=== PATIENT | male | born 1940 | race Caucasian/White ===

== ENCOUNTER → 2019-03-30 | Outpatient (CLI) | payer MEDICARE ==
[~2019-03-30] MED LIST: AMLODIPINE BESY10 MG PO; ASPIR 8181 MG PO; ATORVASTATIN CA10 MG PO; VITAMIN B12 PO; VITAMIN D32000 UNIT PO
--- NOTE | 2019-03-30 11:27 | Diagnostic Imaging Report ---
EXAM: Renal Ultrasound INDICATION: ^[id number] ^1028 ^CHRONIC KIDNEY DISEASE COMPARISON: None TECHNIQUE: Transverse and longitudinal images of the kidneys and bladder were obtained. FINDINGS: Right Kidney: Length: 10.1 cm Appearance: Normal echogenicity. Collecting system: No hydronephrosis Stones: None Cyst/Mass: Mid pole cyst measuring 2.4 x 2.4 x 2.1 cm and lateral midpole cyst measuring 2.0 x 1.6 x 2.0 cm. Left Kidney: Length: 9.5 cm Appearance: Slightly increased echogenicity. Collecting system: No hydronephrosis Stones: None Cyst/Mass: Multiple simple cysts, the largest of which are lateral/inferior (3.3 x 3.1 x 2.9 cm) and medial/superior (2.6 x 2.2 x 2.2 cm). Bladder: There is an echogenic mass at the posterior and inferior aspect of the bladder measuring 2.9 x 1.9 x 3.5 cm which is non-mobile and demonstrates posterior acoustic shadowing. IMPRESSION: Echogenic non-mobile 2.9 x 1.9 x 3.5cm mass in the bladder with posterior acoustic shadowing may represent a stone versus less likely calcified mass. Bilateral simple renal cysts. No renal calculi or hydronephrosis. Signed by: Fermin Orantes MD on 03/30/2019 11:24 AM
== END ==
LOC: US 09:33
PROVIDERS: ATTEND Urology
DX: N18.9 Chronic kidney disease, unspecified (principal)
CPT/HCPCS: 76770

== ENCOUNTER → 2019-04-17 | Day surgery (SDC) | payer MEDICARE ==
--- NOTE | 2019-04-14 17:00 | Diagnostic Imaging Report ---
EXAMINATION: CHEST 2 VIEWS INDICATION: Pre-operative COMPARISON: None FINDINGS: TUBES and LINES: None. LUNGS: The lung volumes are normal. No focal consolidation or pulmonary edema. PLEURA: No pleural effusion or pneumothorax. HEART AND MEDIASTINUM: The cardiomediastinal silhouette is normal in size and contour. BONES AND SOFT TISSUES: No acute fracture or dislocation. UPPER ABDOMEN: No free air under the diaphragm. IMPRESSION: No focal pneumonia or pulmonary edema. Signed by: Fermin Orantes MD on 04/14/2019 4:57 PM
[~2019-04-17] MED LIST changes: +ACETAMINOPHEN/CODEINE 300MG - 30MG TAB ONE; +B&O 60MG R/S 60 MG SUPP PR ONE; +CEFTRIAXONE SOD 1 GM/NS 50 ML 50 ML IV ONE; +DEXAMETHASONE SOD PHOS INJ 4 MG/ML VIAL ONE; +EPHEDRINE SULFATE INJ 50 MG/10 ML SYR ONE; +FENTANYL CITRATE/PF 100MCG/2 ML INJ ONE; +GENTAMICIN 80MG/NS 100 ML 200 ML IV ONE; +IOPAMIDOL 610MG/1ML 300 MG/ML VIAL IV ONE; +LIDOCAINE HCL 2% LOCAL INJ 5 ML SDV VIAL INJ ONE; +MIDAZOLAM HCL 2 MG/2 ML VIAL ONE; +ONDANSETRON HCL INJ 2MG/ML 2ML 2 MG/ML VIAL ONE; +PROPOFOL IV EMULSION 10 MG/ML 20 ML VIAL ONE; +SEVOFLURANE INHAL SOLN 250 ML PEN BTL ONE
[2019-04-17 10:15] VITALS: BP 122/77
--- NOTE | 2019-04-17 10:19 | Operative Report ---
DATE OF PROCEDURE: 04/17/2019 SURGEON: Jacinto Mcclure MD PREOPERATIVE DIAGNOSES: 1. Urinary tract infections. 2. Large bladder stone. POSTOPERATIVE DIAGNOSES: 1. Urinary tract infections. 2. Large bladder stone. OPERATIONS PERFORMED: 1. Cystourethroscopy with bilateral ureteral catheterization and retrograde ureteropyelography (separately performed for the urinary tract infections). 2. Interpretation of retrograde ureteropyelography. 3. Supervision of fluoroscopy, no radiologist present. 4. Cystolitholapaxy (separately performed on a 4 cm bladder stone) (separately performed for the diagnosis of stone). 5. Interpretation of cystography. ANESTHESIA: General. COMPLICATIONS: None. CLINICAL SUMMARY: Mian Olmos is a 78-year-old man with a neurogenic bladder. He does intermittent catheterizations 5 times a day. The patient underwent renal sonography revealed bilateral renal cysts and also revealed an echogenic focus within the patient's bladder. The patient went to the emergency room and underwent CT scanning, which showed a large bladder stone. No kidney stones were identified. The cysts were also noted. Perrin catheter was placed for some reason by the emergency room that did not communicate with me. The patient is back on his intermittent catheterization regimen. He is brought to the operating room today for the above procedures. He is aware of the risks of bleeding, infection, injury to adjacent structures, need for additional procedures and elected to proceed. Due to the fact that we expect the stone to be colonized with bacteria, broad-spectrum antibiotics were given preoperatively. OPERATIVE PROCEDURE IN DETAIL: Informed consent was verified. Mian Olmos was properly identified and taken to the operative room and placed on the cystoscopy table in supine position. Anesthesia was uneventfully begun. The patient was then carefully and gently repositioned in dorsal lithotomy position with all pressure points well padded. His genitalia were prepared and draped in usual sterile fashion. The 22.5-Burundian cystoscope sheath with a visual obturator in place was atraumatically inserted. The patient's urethra was guided unremarkably. Urethra through the prostate bed, which was significant for bilobar prostatic hypertrophy with visual obstruction and kissing lateral lobes. We entered the patient's bladder, panendoscopy revealed trabeculations and a very large 4 cm stone within the patient's bladder lumen. An 8-Burundian catheter was used to cannulate each ureter and retrograde ureteropyelograms were performed. Interpretation of retrograde ureteropyelography: Contrast was instilled in a retrograde fashion bilaterally. There were no tumors. There were no diverticula of the upper tract was very large filling defect in the very large stone over 4 cm in size noted within the bladder. We utilized the laser cystoscope sheath with the continuous-flow and we utilized the 1000 laser fiber to fragment the stone, pulverized into multiple smaller fragments, these fragments were all extracted, this was verified endoscopically. Due to the fact that there were no suspicious lesions identified in the bladder, careful cystoscopy was performed after cystolitholapaxy was completed. We noted erythema that was present in posterior bladder wall as we expect following such an extent cystolitholapaxy. Therefore, we placed a 22-Burundian Perrin catheter into the patient's bladder, it was irrigated to and fro to ensure work properly. Contrast was injected and performed cystography. Interpretation cystography of the bladder wall was relatively smooth, but trabeculated, there were filling defects from the lobes of the prostate projecting into the patient's bladder lumen. There was no evidence of vesicoureteric reflux. The Perrin catheter balloon was in good position, coiled with the balloon inflated in the patient's bladder lumen. A belladonna and opium suppository were placed revealing a prostate that is over 40 g in size, smooth, nonfluctuant without any nodules. The patient was then uneventfully reversed from anesthesia and taken to recovery room in stable condition. There were no complications of the procedure. The patient tolerated the procedure well. Urine culture was sent from the recovery room, so we can document the patient's culture status upon leaving the hospital and then the patient was prescribed Ceftin as well analgesics for discharge. The patient is to remove his Perrin catheter in 2 days and resume his 5 times per day intermittent catheterizations. Jacinto MD Kami OH/MODL /[id number] cc: Dr. Master Licea
--- OUTSIDE RECORDS SUMMARY | 2019-04-17 10:20 | XMS REPORT ---
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 Allergies, Adverse Reactions, Alerts Allergy Name Allergy Type Status Severity Reaction(s) Onset Date Inactive Date Treating Clinician Comments No Known Allergies DA Active U 2018-02-10 00:00:00 Medications This patient has no known medications. Encounters Start Date/Time End Date/Time Encounter Type Admission Type Attending Clinicians Care Facility Care Department Encounter ID 2019-01-06 05:59:00 2019-01-06 05:59:00 Outpatient [id number] Results Test Description Test Time Test Comments Text Results Atomic Results Result Comments CHEST 2 VIEWS 2019-04-14 16:56:00 [facility] [address] [address] Patient Name: KATHLEEN SPENCER MR #: [id number] : 1940 Age/Sex: 78/M Req #: [id number] Adm Physician: Ordered by: KIP TRUJILLO MD Report #: [id number] Location: OR Room/Bed: Procedure: [id number] DX/CHEST 2 VIEWS Exam Date: 04/14/19 Exam Time: 1640 REPORT STATUS: Signed EXAMINATION: CHEST 2 VIEWS INDICATION: Pre-operative COMPARISON: None FINDINGS: TUBES and LINES: None. LUNGS: The lung volumes are normal. No focal consolidation or pulmonary edema. PLEURA: No pleural effusion or pneumothorax. HEART AND MEDIASTINUM: The cardiomediastinal silhouette is normal in size and contour. BONES AND SOFT TISSUES: No acute fracture or dislocation. UPPER ABDOMEN: No free air under the diaphragm. IMPRESSION: No focal pneumonia or pulmonary edema. Signed by: Bri Baumann MD on 04/14/2019 4:57 PM Dictated By: BRI BAUMANN MD 56 Transcribed By: NEHEMIAH on 04/14/191656 COPY TO: KIP TRUJILLO MD - CT ABD PELVIS W/O CONT 2019-04-03 17:08:00 Name: KATHLEEN SPENCER [facility] : 1940 Age/S: 78 / M [address] [facility] Unit #: [id number] Loc: [place] [address] Phys: Vasu Parker MD Acct: [id number] Dis Date: Status: REG ER PHONE #: [phone] Exam Date: 04/03/2019 1643 FAX #: [phone] Reason: hematuria eval stones EXAMS: CPT CODE: [id number] CT ABD PELVIS W/O CONT 21620 HISTORY: Hematuria. COMPARISON: CT scan from February 07, 2018 and December 31, 2014. CT abdomen and pelvis: Stone protocol. Automated exposure control. CT ABDOMEN: The lung bases are clear. Noncontrast liver is unremarkable. No discrete mass or lesions. Patient is post cholecystectomy. The spleen is unremarkable. The stomach distended incompletely however it is normal with small retrocardiac hiatal hernia thickened distal esophagus. The pancreas is unremarkable with punctate calcifications within the pancreatic head and uncinate process region. No ductal dilatation. Adrenals are normal. Both kidneys are free from hydroureteronephrosis. No calyceal stones. Bilateral Bosniak 1 and 2 lesions some of which are hyperdense have remained stable from February 07, 2015 demonstrating at least 4 year stability. Atherosclerotic change of the abdominal and pelvic vasculature. No pathologic adenopathy. No bowel obstruction. No colitis, diverticulitis or enteritis. Constipation. CT PELVIS: Appendix is now visible with certainty but no inflammatory changes are noted. Pelvic bowel loops are unobstructed. Well-distended urinary bladder with thickened wall anteriorly in the dome measuring 1 cm. Correlate for chronic cystitis. Large stone as well within the dependent portion on the left side in the level of the left ureteral orifice is new from previous examination measuring 3.2 cm with average Hounsfield unit measurement ranging up to 840. Prostatomegaly at 4.7 cm. No pathologic adenopathy. Phleboliths. Fat containing inguinal canal on the left. PAGE 1 Signed Report (CONTINUED) Name: KATHLEEN SPENCER [facility] : 1940 Age/S: 78 / M [address] [facility] Unit #: [id number] Loc: [place] [address] Phys: Vasu Parkre MD Acct: [id number] Dis Date: Status: REG ER PHONE #: [phone] Exam Date: 04/03/2019 1649 FAX #: [phone] Reason: hematuria eval stones EXAMS: CPT CODE: [id number] CT ABD PELVIS W/O CONT 41675 <Continued> Subcutaneous tissues and the musculature are normal in appearance. No lytic or blastic lesions are noted within the bony skeleton. DJD. IMPRESSION: No hydroureteronephrosis or calyceal stones. Innumerable bilateral Bosniak 1 and 2 lesions, greater on the left demonstrating at least 4 year stability going back to examination of 2014. Moderately distended gallbladder with significantly thickened wall at 1 cm in the nondependent portion. Correlate for chronic cystitis. 3.2 cm stone as well within the dependent portion on the left side at the level of the left ureteral orifice without obstruction. Prostatomegaly. Appendix is not visible but no inflammatory changes are noted. No bowel obstruction or colitis or diverticulitis or enteritis. Electro nically Signed by Allen Hand on 04/03/2019 at 1708 Reported and signed by: Artemio Hand M.D. CC: Master Licea; Vasu Parker MD Technologist:JUSTINA DING, RT(R),CT CTDI: DLP: Trnscb Date/Time: 04/03/2019 (1708) [email or web address] Orig Print D/T: S: 04/03/2019 (6657) PAGE 2 Signed Report PROTHROMBIN TIME 2019-04-03 16:33:00 PROTHROMBIN TIME PATIENT (test code=PTP) 9.6 seconds 9.0-13.0 INTERNATIONAL NORMAL RATIO (test code=INR) 1.0 0.8-1.2 The therapeutic range for oral anticoagulant therapy formost indications is an international normalized ratio (INR)of between 2.0 and 3.0. The recommended therapeutic INRrange for various clinical situations is listed below: Clinical Situation INR range Pulmonary e mbolism treatment (2.0-3.0)Venous thrombosis treatmentVenous thrombosis prophylaxis (high risk surgery)Prevention of systemic embolism from: Acute myocardial infarction Valvular heart disease Atrial fibrillation Mechanical prosthetic heart valves (2.5-3.5) IS PATIENT ON ANTICOAGULANTS? NTHROMBOPLASTIN TIME [id number] 16:33:00* Test Item Value Reference Range Comments THROMBOPLASTIN TIME PARTIAL (test code=PTT) 23.0 seconds 25.5-34.3 Therapeutic Range for patients on Heparin Therapy is 2 to2.5 times their baseline PTT level. IS PATIENT ON ANTICOAGULANTS? NCOMPREHENSIVE METABOLIC [id number] 16:28:00 * Test Item Value Reference Range Comments SODIUM (test code=NA) 138 mmol/L 135-148 POTASSIUM (test code=K) 3.6 mmol/L 3.5-5.1 CHLORIDE (test code=CL) 102 mmol/L 101-109 CARBON DIOXIDE (test code=CO2) 26.6 mmol/L 21-32 ANION GAP (test code=GAP) 13 mmol/L 10-20 GLUCOSE (test code=GLU) 125 mg/dL 74-106 BLOOD UREA NITROGEN (test code=BUN) 36 mg/dL 3-21 CREATININE (test code=CREAT) 2.10 mg/dL 0.55-1.3 BUN/CREATININE RATIO (test code=BUN/CREA) 17.1 10-20 TOTAL PROTEIN (test code=PROT) 7.0 g/dL 6.5-8.4 ALBUMIN (test code=ALB) 3.7 g/dL 3.4-4.8 GLOBULIN (test code=GLOB) 3.3 G/DL 1-10 ALBUMIN/GLOBULIN RATIO (test code=A/G) 1.1 RATIO 0.75-1.50 CALCIUM (test code=CA) 8.8 mg/dL 8.4-10.2 BILIRUBIN TOTAL (test code=BILT) 0.90 mg/dL 0.0-1.0 SGOT/AST (test code=AST) 18 U/L 6-32 SGPT/ALT (test code=ALT) 29 U/L 12-78 Note: Change in REFERENCE RANGE due to new reagent method. ALKALINE PHOSPHATASE TOTAL (test code=ALKP) 80 U/L 38-126 CREATINE KINASE (CK)2019-04-03 16:28:00* Test Item Value Reference Range Comments CREATINE KINASE (CK) (test code=CK) 79 U/L 39-308 COMPREHENSIVE METABOLIC [id number] 16:23:00* Test Item Value Reference Range Comments SODIUM (test code=NA) 138 mmol/L 135-148 POTASSIUM (test code=K) 3.6 mmol/L 3.5-5.1 CHLORIDE (test code=CL) 102 mmol/L 101-109 CARBON DIOXIDE (test code=CO2) 26.6 mmol/L 21-32 ANION GAP (test code=GAP) 13 mmol/L 10-20 GLUCOSE (test code=GLU) 125 mg/dL 74-106 BLOOD UREA NITROGEN (test code=BUN) 36 mg/dL 3-21 CREATININE (test code=CREAT) 2.10 mg/dL 0.55-1.3 BUN/CREATININE RATIO (test code=BUN/CREA) 17.1 10-20 TOTAL PROTEIN (test code=PROT) gram/dL 6.4-8.2 ALBUMIN (test code=ALB) g/dL 3.4-5.0 GLOBULIN (test code=GLOB) g/dL 2.7-4.2 ALBUMIN/GLOBULIN RATIO (test code=A/G) 0.75-1.50 CALCIUM (test code=CA) 8.8 mg/dL 8.4-10.2 BILIRUBIN TOTAL (test code=BILT) mg/dL 0.2-1.2 SGOT/AST (test code=AST) IUnit/L 15-37 SGPT/ALT (test code=ALT) U/L 10-69 ALKALINE PHOSPHATASE TOTAL (test code=ALKP) IUnit/L 45-117 CREATINE KINASE (CK)2019-04-03 16:23:00* Test Item Value Reference Range Comments CREATINE KINASE (CK) (test code=CK) IUnit/L 26-208 CBC W/AUTO [id number] 16:16:00* Test Item Value Reference Range Comments WHITE BLOOD CELL (test code=WBC) 9.0 K/mm3 4.5-12.5 RED BLOOD CELL (test code=RBC) 4.85 mill/mm3 4.0-5.8 HEMOGLOBIN (test code=HGB) 13.9 gram/dL 13.0-17.5 HEMATOCRIT (test code=HCT) 42.9 % 42.0-52.0 MEAN CELL VOLUME (test code=MCV) 88.5 fL 80-98 MEAN CELL HGB (test code=MCH) 28.7 picogram 27.0-33.0 MEAN CELL HGB CONCETRATION (test code=MCHC) 32.4 gram/dL 33.0-36.0 RED CELL DISTRIBUTION WIDTH (test code=RDW) 13.4 % 11.6-16.2 RED CELL DISTRIBUTION WIDTH SD (test code=RDW-SD) 44.4 fL 37.0-51.0 PLATELET COUNT (test code=PLT) 237 K/mm3 150-450 MEAN PLATELET VOLUME (test code=MPV) 11.6 fL 6.7-11.0 NEUTROPHIL % (test code=NT%) 60.9 % 39.0-69.0 LYMPHOCYTE % (test code=LY%) 30.1 % 25.0-55.0 MONOCYTE % (test code=MO%) 7.9 % 0.0-10.0 EOSINOPHIL % (test code=EO%) 0.3 % 0.0-5.0 BASOPHIL % (test code=BA%) 0.4 % 0.0-1.0 NEUTROPHIL # (test code=NT#) 5.46 K/mm3 1.8-7.7 LYMPHOCYTE # (test code=LY#) 2.70 K/mm3 1.0-5.0 MONOCYTE # (test code=MO#) 0.71 K/mm3 0-0.8 EOSINOPHIL # (test code=EO#) 0.03 K/mm3 0.0-0.5 BASOPHIL # (test code=BA#) 0.04 K/mm3 0.0-0.2 MANUAL DIFF REQUIRED (test code=MDIFF) NO URINALYSIS [id number] 16:03:00* Test Item Value Reference Range Comments UA COLOR (test code=COLU) LIGHT BROWN YELLOW UA APPEARANCE (test code=APPU) HAZY CLEAR UA GLUCOSE DIPSTICK (test code=DGLUU) norm mg/dL NEGATIVE UA BILIRUBIN DIPSTICK (test code=BILU) NEGATIVE mg/dL NEGATIVE UA KETONE DIPSTICK (test code=KETU) neg mg/dL NEGATIVE UA SPECIFIC GRAVITY (test code=SGU) 1.015 1.001-1.035 UA BLOOD DIPSTICK (test code=BAYLEE) 250 (4+) Jey/uL NEGATIVE UA PH DIPSTICK (test code=ELMA) 5.0 5.0-8.0 UA PROTEIN DIPSTICK (test code=PROU) 100 (2+) mg/dL Neg-15 UA UROBILINIOGEN DIPSTICK (test code=URO) norm mg/dL 0.0-0.2 UA NITRITE DIPSTICK (test code=MIRTA) NEGATIVE NEGATIVE UA LEUKOCYTE ESTERASE DIPSTICK (test code=LEUU) 100 Jayme/uL (1+) uL NEGATIVE UA WBC (test code=WBCU) 3-5 per HPF 0-5 UA RBC (test code=RBCU) >100 per HPF 0-5 UA EPITHELIAL CELLS (test code=EPIU) Few (2-5/hpf) per HPF Few UA BACTERIA (test code=BACU) FEW per HPF NONE Urine Source? Clean CatchUS RENAL RETROPERITONEAL [id number] 11:18:[address] [address] Patient Name: KATHLEEN SPENCER MR #: [id number] : 1940 Age/Sex: 78/M Req #: [id number] Adm Physician: Ordered by: KIP TRUJILLO MD Report #: [id number] Location: Room/Bed: Procedure: [id number] US /US RENAL RETROPERITONEAL COMP Exam Date: 03/30/19 E xam Time: 1028 REPORT STATUS: Lenore d EXAM: Renal Ultrasound INDICATION: [id number] CHRONIC KIDNEY DISEASE COMPARISON: None TECHNIQUE: Transverse and longitudinal i mages of the kidneys and bladder were obtained. FINDINGS: Rig ht Kidney: Length: 10.1 cm Appearance: Normal echogenicity. Collecting system: No hydronephrosis Stones: None Cyst/Mass: Mid pole cyst measuring 2. 4 x 2.4 x 2.1 cm and lateral midpole cyst measuring 2.0 x 1.6 x 2.0 cm. L eft Kidney: Length: 9.5 cm Appearance: Slightly increased echogenicity. Collecting system: No hydronephrosis Stones: None Cyst/Mass: Multiple simple cysts, the largest of which are lateral/inferior (3.3 x 3.1 x 2.9 cm) and me dial/superior (2.6 x 2.2 x 2.2 cm). Bladder: There is an echogenic mass at the posterior and inferior aspect of the bladder measuring 2.9 x 1.9 x 3.5 cm which is non-mobile and demonstrates posterior acoustic shadowing. IMP RESSION: Echogenic non-mobile 2.9 x 1.9 x 3.5cm mass in the bladder with poste rior acoustic shadowing may represent a stone versus less likely calcified mas s. Bilateral simple renal cysts. No renal calculi or hydronephrosis. Signed by: Bri Baumann MD on 03/30/2019 11:24 AM Dictated By: BRI BAUMANN MD [id number] Transcribed By: EM ACOSTA on 03/30/19 1124 COPY TO: KIP TRUJILLO MD
== END | disposition home or self-care (01) ==
LOC: OR 04:20
PROVIDERS: ATTEND Urology
DX: N21.0 Calculus in bladder (principal); N39.0 Urinary tract infection, site not specified; I12.9 Hypertensive chronic kidney disease with stage 1 through stage 4 chronic kidney disease, or unspecified chronic kidney disease; N40.0 Benign prostatic hyperplasia without lower urinary tract symptoms; H35.30 Unspecified macular degeneration; N18.9 Chronic kidney disease, unspecified; Z01.810 Encounter for preprocedural cardiovascular examination; Z01.818 Encounter for other preprocedural examination; Z79.82 Long term (current) use of aspirin; Z87.891 Personal history of nicotine dependence
CPT/HCPCS: 52005; 52318; 71046; 74420; 87086; 88300; 93005; C1758; J0696; J1100; J1580; J2001; J2250; J2405; J2704; J3010; Q9967